=== PATIENT | female | born 1935 | race Caucasian/White ===

== ENCOUNTER 2017-01-08 17:17 | Inpatient (IN) | payer OTHER ==
[~2017-01-08] VITALS: Ht 157.5 cm; Wt 63.7 kg
--- NOTE | 2017-01-08 18:27 | NUR ---
PT C/O THROAT PAIN STATING "THIS MORNING AROUND 8AM I FELT THE SENSATION THAT SOMEONE WAS CHOKING ME. MY THROAT DOESN'T HURT, IT JUST FEELS LIKE SOMEONE IS TIGHTENING MY NECK". NO SWELLING NOTED INSIDE PT'S MOUTH. PT SPEAKING IN CLEAR FULL SENTENCES. ABLE TO SWALLOW W/OUT ASPIRATION. COMFORT MEASURES IMPLEMENTED. CALL LIGHT W/IN REACH. PT AWAITING MSE. WILL CONTINUE TO MONITOR.
--- NOTE | 2017-01-08 18:52 | NUR ---
DR. DAVE AT BEDSIDE FOR MSE.
--- NOTE | 2017-01-08 19:07 | NUR ---
REPORT GIVEN TO RUTH ANN VASQUEZ AND RUTH ANN SANCHEZ FOR CONTINUATION OF CARE PRIMARY RNS.
[2017-01-08 19:26] LABS: CALCIUM 8.3 mg/dL (8.5-10.1); CARBON DIOXIDE 30.8 mmol/L (21-32); CHLORIDE SERUM 105 mmol/L (98-107); GLUCOSE SERUM 180 mg/dL (74-106); POTASSIUM SERUM 3.4 mmol/L (3.5-5.1); SODIUM SERUM 143 mmol/L (136-145)
[2017-01-08 19:27] LABS: BASOPHIL % 0.7 % (0-2); PLATELET COUNT 334 x10^3mcL (130-400); RED CELL DISTRIBUTION WIDTH 13.7 % (11.5-14.5)
[2017-01-08 19:30] LABS: ALBUMIN 3.4 g/dL (3.4-5.0); ALKALINE PHOSPHATASE 90 U/L (46-116); ALT/SGPT 17 U/L (14-59); AST/SGOT 20 U/L (15-37); BILIRUBIN TOTAL 0.2 mg/dL (0.20-1.00); CHOLESTEROL 181 mg/dL (<200); LIPASE 301 IU/L (73-393)
[2017-01-08 19:34] LABS: CHOLESTEROL/HDL RATIO 7.2; HDL CHOLESTEROL 25 mg/dL (40-60); TRIGLYCERIDES 336 mg/dL (<150)
--- NOTE | 2017-01-08 19:41 | NUR ---
DR DAVE AT BEDSIDE TO REVIEW POC WITH PT AND FAMILY
--- NOTE | 2017-01-08 19:48 | NUR ---
PT SITTING IN POSITION OF COMFORT, NO S/S DISTRESS NOTED, AAOX4, RESPS EVEN AND UNLABORED, PT DENIES PAIN AT THIS TIME. CALL LIGHT WITHIN REACH, DAUGHTER AT BEDSIDE.
[2017-01-08 20:00] LABS: FREE T4 0.85 ng/dL (0.76-1.46); T3 TOTAL 0.94 ng/mL
[2017-01-08 20:52] LABS: MAGNESIUM 2.3 mg/dL (1.8-2.4); PHOSPHOROUS 3.6 mg/dL (2.5-4.9)
--- NOTE | 2017-01-08 21:10 | NUR ---
REPORT GIVEN TO BRENDA VALLECILLO TO ASSUME CARE.
--- NOTE | 2017-01-08 21:15 | NUR ---
REC'D PT FROM ER [facility]IA [facility]. PT IS AAOX4. DENIES DIZZINESS OR BROWNING. TELE #10 AFIB PP=655. DENIES CP. RESP EVEN AND UNLABORED. NO SOB NOTED. GEN WEAKNESS NOTED. IV NOTED TO RFA. INTACT AND PATENT. ORIENTED PT TO CALL LIGHT. BED IN LOWEST POSITION. WILL ENDORSE TO PRIMARY RN.
[2017-01-08 21:31] VITALS: BP 143/73
--- NOTE | 2017-01-08 22:15 | NUR ---
NEWLY ADMITTED PATIENT. A/O X4 KINYARWANDA SPEAKING. VERBAL RESPONSIVE. STARTED IV NS AT 60 ML/H TO RIGHT HAND. NO LEAKAGE/INFILTRATION. DENIES PAIN AT THIS TIME. DAUGHTER AT BEDSIDE. ALL NEEDS MET, CALL LIGHT WITHIN REACH. WILL CONTINUE TO MONITOR.
[2017-01-08 23:41] LABS: microscopic required? YES; urine erythrocyte 2+ (NEGATIVE)
[2017-01-09 00:05] LABS: AMPHETAMINE QUAL UR NONE DETECTED (NEG <=1000)
--- NOTE | 2017-01-09 00:20 | NUR ---
CONTACTED DR. KENYA QUINTANA, NOTIFIED ABOUT POTASSIUM DOSE, UNAVAILABILITY OF COUMADIN, AND RESULT OF ABNORMAL UA RESULT.
--- NOTE | 2017-01-09 02:13 | NUR ---
PT MEDICATED WITH HEPARIN SUBQ 5000U FOR NEW ONSET AFIB, KLOR-CON 20MEQ PO FOR K+ AT 3.4, AND ROCEPHIN IVPB FOR UTI.
[2017-01-09] MEDS ORDERED: HCTZ/LISINOPRIL1 TA2 PO (02:40)
[2017-01-09] MEDS ORDERED: PRAVASTATIN SOD20 M1 PO (02:40)
--- NOTE | 2017-01-09 05:14 | NUR ---
PT RESTING IN BED. IVF NS AT 125 ML/HR. NO LEAKAGE OR INFILTRATION NOTED. NO DISTRESS NOTED AT THIS TIME. ALL NEEDS MET, CALL LIGHT IN REACH, WILL CONTINUE TO MONITOR.
[2017-01-09 05:39] VITALS: BP 101/62
--- NOTE | 2017-01-09 06:18 | NUR ---
PT A/O X4. VERBALLY RESPONSIVE. CALM AND COOPERATIVE TO POC. NO ACUTE DISTRESS NOTED AT THIS TIME. DAUGHTER AT BEDSIDE. ALL NEEDS MET, CALL LIGHT IN REACH, WILL CONTINUE TO MONITOR. POC WILL ENDORSE TO AM NURSE.
[2017-01-09 07:13] LABS: BASOPHIL % 0.5 % (0-2); PLATELET COUNT 290 x10^3mcL (130-400); RED CELL DISTRIBUTION WIDTH 13.9 % (11.5-14.5)
--- NOTE | 2017-01-09 07:15 | NUR ---
PT IN HIGH FOWLERS. AWAKE, COOPERATIVE OF CARE, ABLE TO VERBALIZE NEEDS. DENIES CHEST DISCOMFORT AT MOMENT. IV INFUSING WELL TO RFA #20 NS 125ML/HR. BED IN LOWEST POSITION, CALL LIGHT WITHIN REACH.
[2017-01-09 07:16] LABS: CALCIUM 8.3 mg/dL (8.5-10.1); CARBON DIOXIDE 29.2 mmol/L (21-32); CHLORIDE SERUM 110 mmol/L (98-107); CREATININE SERUM 0.9 mg/dL (0.6-1.0); GLUCOSE SERUM 106 mg/dL (74-106); POTASSIUM SERUM 4.2 mmol/L (3.5-5.1); SODIUM SERUM 145 mmol/L (136-145)
[2017-01-09 09:58] VITALS: BP 110/56
--- NOTE | 2017-01-09 12:55 | NUR ---
PT SITTING AT BEDSIDE CHAIR. TOLERATING DIET WELL. DENIES CHEST PAIN AT MOMENT. FAMILY AT BEDSIDE.
[2017-01-09 13:44] VITALS: BP 134/84
--- NOTE | 2017-01-09 16:50 | NUR ---
PASSED AFTERNOON MEDS. PT TOLERATED WELL. PT DENIES CP, PALPITATIONS. IV PATENT TO RFA. CALL LIGHT WITHIN REACH.
[2017-01-09 16:58] VITALS: BP 119/69
--- NOTE | 2017-01-09 19:40 | NUR ---
PT FOUND IN BED, A/O X4. ABLE TO STATE NEEDS. LUNGS CLEAR TO AUSCULTATE, NO C/O SOB. ON TELE 10, AFIB WITH HR IN 90S. NO C/O CHEST PAIN. BOWEL SOUNDS IN ALL 4 QUADRANTS, NO DISTENTION/TENDERNESS. SKIN DRY/INTACT. PT ABLE TO AMBULATE SELF TO RESTROOM WITH MINIMAL ASSIST. IV TO RFA, NS AT 125 ML/HR. NO LEAKAGE/INFILTRATION NOTED. DAUGHTER AT BEDSIDE. ALL NEEDS MET AT THIS TIME, CALL LIGHT IN REACH, BED IN LOWEST POSITION, WILL CONTINUE TO MONITOR.
[2017-01-09 20:56] VITALS: BP 109/52
--- NOTE | 2017-01-09 23:01 | NUR ---
PT RHYTHM CONVERTED FROM AFIB TO NSR, WITH HR IN 60S. DR KENYA QUINTANA NOTIFIED, ORDERED TO CONTINUE XARELTO PO.
[2017-01-10 05:19] VITALS: BP 111/55
--- NOTE | 2017-01-10 05:48 | NUR ---
PT ASLEEP IN BED, NO ACUTE DISTRESS AT THIS TIME. VITAL SIGNS STABLE. NO ACUTE DISTRESS NOTED AT THIS TIME. ON TELE 10, NSR WITH HR IN 60S. IVF NS AT 125 ML/HR TO RIGHT HAND. NO LEAKAGE/INFILTRATION NOTED. DAUGHTER AT BEDSIDE. ALL NEEDS MET. BED IN LOWEST POSITION, CALL LIGHT IN REACH, WILL CONTINUE TO MONITOR.
[2017-01-10 06:16] LABS: BASOPHIL % 0.5 % (0-2); PLATELET COUNT 266 x10^3mcL (130-400); RED CELL DISTRIBUTION WIDTH 13.9 % (11.5-14.5)
[2017-01-10 06:38] LABS: CALCIUM 8.1 mg/dL (8.5-10.1); CARBON DIOXIDE 27.3 mmol/L (21-32); CHLORIDE SERUM 112 mmol/L (98-107); CREATININE SERUM 0.8 mg/dL (0.6-1.0); GLUCOSE SERUM 92 mg/dL (74-106); POTASSIUM SERUM 4.3 mmol/L (3.5-5.1); SODIUM SERUM 145 mmol/L (136-145)
--- NOTE | 2017-01-10 07:10 | NUR ---
PT SITTING AT BEDSIDE CHAIR. DENIES PAIN AT MOMENT. NO DISTRESS NOTED. IV INFUSING WELL TO RFA #20 NS 125ML/HR. CALL LIGHT WITHIN REACH.
[2017-01-10 13:07] VITALS: BP 127/44
--- NOTE | 2017-01-10 16:50 | NUR ---
PASSED AFTERNOON MEDS. PT TOLERATED WELL. DENIES PAIN AT MOMENT. NO DISTRESS. CALL LIGHT WITHIN REACH.
[2017-01-10] MEDS ORDERED: COUMADIN2.5 MG PO (17:36)
[2017-01-10 17:40] VITALS: BP 142/58
[2017-01-10] MEDS ORDERED: COUMADIN5 MG PO (17:52)
[2017-01-10 18:19] VITALS: BP 127/44
--- NOTE | 2017-01-10 19:16 | NUR ---
DISCHARGE INSTRUCTIONS GIVEN TO PT AND DAUGHTER. BOTH VERBALIZED UNDERSTANDING FOR FOLLOW UP APPOINTMENT, LAB WORK UP FOR PT, PTT, INR, AND IMPORTANCE OF COUMADIN ADMINISTRATION. IV DC'D CATHETER INTACT, NO PHLEBITIS, TELE BOX REMOVED. PT ESCORTED OUT OF UNIT SAFELY.
[2017-01-10] MEDS ORDERED: TOPROL XL25 MG PO (20:56)
[2017-01-11] MEDS ORDERED: LAC PO (05:32)
[2017-01-11] MEDS ORDERED: LEVAQUIN750 MG PO (05:32)
[2017-01-11] MEDS ORDERED: MAC100 PO (13:50)
== END 2017-01-10 19:18 | disposition home or self-care (01) | DRG 201 ==
LOC: ED 17:17 → DU 20:06
PROVIDERS: Specialist; ADMIT Student in an Organized Health Care Education/Training Program
DX: I48.0 Paroxysmal atrial fibrillation (principal); N17.0 Acute kidney failure with tubular necrosis; N39.0 Urinary tract infection, site not specified; E86.0 Dehydration; I10 Essential (primary) hypertension; E87.6 Hypokalemia; E78.2 Mixed hyperlipidemia; J06.9 Acute upper respiratory infection, unspecified; R31.9 Hematuria, unspecified; M94.0 Chondrocostal junction syndrome [Tietze]; R73.03 Prediabetes; Z68.25 Body mass index [BMI] 25.0-25.9, adult
CPT/HCPCS: 82962; 83880; 84439; J0696; J1644; J7030; Q0092

== ENCOUNTER 2017-01-31 01:00 | Inpatient (IN) | payer OTHER ==
[~2017-01-31] VITALS: Ht 157.5 cm; Wt 61.2 kg
[~2017-01-31 01:00] MED LIST: COUMADIN2.5 MG PO; COUMADIN5 MG PO; HCTZ/LISINOPRIL1 TA2 PO; LAC PO; LEVAQUIN750 MG PO; MAC100 PO; PRAVASTATIN SOD20 M1 PO; TOPROL XL25 MG PO
[2017-01-31 02:24] LABS: BASOPHIL % 0.4 % (0-2); PLATELET COUNT 329 x10^3mcL (130-400)
[2017-01-31] MEDS ORDERED: HCTZ/LISINOPRIL1 TAB (03:52)
[2017-01-31] MEDS ORDERED: NEIGHBOR PO (04:34)
[2017-01-31] MEDS ORDERED: HCTZ/LISINOPRIL1 TAB PO (04:35)
[2017-01-31] MEDS ORDERED: TOPROL XL25 MG PO (04:35)
[2017-01-31] MEDS ORDERED: PRAVACHOL20 MG PO (04:35)
[2017-01-31 05:24] VITALS: BP 127/64
[2017-01-31 05:57] LABS: T3 TOTAL 0.94 ng/mL
[2017-01-31 06:06] LABS: MAGNESIUM 2.4 mg/dL (1.8-2.4); PHOSPHOROUS 3.9 mg/dL (2.5-4.9)
[2017-01-31 06:07] LABS: CHOLESTEROL/HDL RATIO 5.1
[2017-01-31 06:16] LABS: FREE THYROXINE INDEX 2.8 ug/dL (1.4-4.5); T4(THYROXINE) 8.1 ug/dL (4.7-13.3)
[2017-01-31 09:43] LABS: ALKALINE PHOSPHATASE 72 U/L (46-116); ALT/SGPT 20 U/L (14-59); AST/SGOT 19 U/L (15-37); BILIRUBIN TOTAL 0.54 mg/dL (0.20-1.00); CALCIUM 8.5 mg/dL (8.5-10.1); CARBON DIOXIDE 28.5 mmol/L (21-32); CHLORIDE SERUM 106 mmol/L (98-107); CREATININE SERUM 0.9 mg/dL (0.6-1.0); GLUCOSE SERUM 95 mg/dL (74-106); POTASSIUM SERUM 3.7 mmol/L (3.5-5.1); SODIUM SERUM 140 mmol/L (136-145); TOTAL PROTEIN, SERUM 6.7 g/dL (6.4-8.2)
[2017-01-31 09:45] LABS: ALBUMIN 3.2 g/dL (3.4-5.0)
[2017-01-31 10:35] VITALS: BP 111/42
[2017-01-31 14:07] VITALS: BP 120/61
[2017-01-31 14:27] LABS: BASOPHIL % 0.4 % (0-2); PLATELET COUNT 298 x10^3mcL (130-400); RED CELL DISTRIBUTION WIDTH 12.9 % (11.5-14.5)
[2017-01-31 14:47] VITALS: Ht 157.5 cm; Wt 61.2 kg
[2017-01-31 15:13] LABS: microscopic required? YES; urine erythrocyte 2+ (NEGATIVE)
[2017-01-31 21:48] LABS: BASOPHIL % 0.4 % (0-2); PLATELET COUNT 263 x10^3mcL (130-400); RED CELL DISTRIBUTION WIDTH 12.7 % (11.5-14.5)
[2017-01-31 21:55] VITALS: BP 120/50
[2017-02-01 06:16] VITALS: BP 125/51
[2017-02-01 07:09] LABS: CALCIUM 8.3 mg/dL (8.5-10.1); CARBON DIOXIDE 26.8 mmol/L (21-32); CHLORIDE SERUM 109 mmol/L (98-107); CREATININE SERUM 0.8 mg/dL (0.6-1.0); GLUCOSE SERUM 92 mg/dL (74-106); POTASSIUM SERUM 4.1 mmol/L (3.5-5.1); SODIUM SERUM 142 mmol/L (136-145)
[2017-02-01 08:59] VITALS: BP 127/62
[2017-02-01] MEDS ORDERED: XARELTO10 M1 PO (11:33)
[2017-02-01 12:08] VITALS: BP 127/62
[2017-02-01] MEDS ORDERED: COLACE100 MG PO (14:13)
== END 2017-02-01 16:41 | disposition home or self-care (01) | DRG 661 ==
LOC: ED 01:00 → DU 04:26
PROVIDERS: Emergency Medicine; ADMIT Family Medicine
DX: D68.32 Hemorrhagic disorder due to extrinsic circulating anticoagulants (principal); N17.0 Acute kidney failure with tubular necrosis; I48.91 Unspecified atrial fibrillation; R04.0 Epistaxis; I10 Essential (primary) hypertension; T45.515A Adverse effect of anticoagulants, initial encounter; Y92.018 Other place in single-family (private) house as the place of occurrence of the external cause; E78.1 Pure hyperglyceridemia; I12.9 Hypertensive chronic kidney disease with stage 1 through stage 4 chronic kidney disease, or unspecified chronic kidney disease; N18.9 Chronic kidney disease, unspecified; D64.9 Anemia, unspecified
CPT/HCPCS: 82962; 83880; 84439; J1200; J3430; J3490; J7030